=== PATIENT | female | born 1940 | race Hispanic/Latino ===

== ENCOUNTER 2017-06-27 12:50 | Inpatient (IN) | payer MEDICARE ==
[~2017-06-27] VITALS: Ht 154.9 cm; Wt 63.5 kg
[~2017-06-27 12:50] MED LIST: ASPI-555 PO; AZIT500T4 PO; BENZ200C53 PO; CHOL200074 PO; CYAN250014 PO; ESOM20CA39 PO; FLUT1DIS IH; FOLI0.8T22 PO; LEVO100T12 PO; LORA0.5T2 PO; LORA10CA9 PO; LOSA100T29 PO; MECL-129 PO; METO-391 PO; MONT10TA24 PO; PRED10TA23 PO; TIOT4MIS2 IH; TRAM50TA4 PO
[2017-06-27 14:08] LABS: BASOPHILS % (AUTO) 0.5 % (0.0-5.0); EOSINOPHILS % (AUTO) 2.9 % (0.0-8.0); HEMATOCRIT 33.8 % (36-48); LYMPHOCYTES % (AUTO) 6.8 % (21.0-51.0); MEAN CORPUSCULAR HEMOGLOBIN 26.4 pg (27.0-33.0); MEAN CORPUSCULAR HGB CONC 32.3 g/dL (32.0-36.0); MEAN CORPUSCULAR VOLUME 81.6 fL (79-99); MONOCYTES % (AUTO) 7.5 % (3.0-13.0); NEUTROPHILS % (AUTO) 82.3 % (40.0-77.0); PLATELET COUNT (AUTO) 515 K/uL (130-400); RED BLOOD CELL COUNT(AUTO) 4.15 MIL/uL (4.00-5.50); RED CELL DISTRIBUTION WIDTH 17.3 % (11.0-15.5); WHITE BLOOD COUNT (AUTO) 17.3 K/uL (4.8-10.8)
[2017-06-27 14:18] LABS: CREATININE 1.3 mg/dL (0.5-1.5); POTASSIUM 4.2 mmol/L (3.5-5.1)
[2017-06-27 14:22] LABS: ALBUMIN 2.4 g/dL (3.5-5.0); BILIRUBIN,TOTAL 0.6 mg/dL (0.2-1.0); TOTAL PROTEIN, SERUM 6.6 g/dL (6.0-8.3)
[2017-06-27 14:26] LABS: INR 1.09 (0.85-1.15); PARTIAL THROMBOPLASTIN TIME 26.6 SEC (26.3-35.5); PROTHROMBIN TIME 11.4 SEC (9.6-11.6)
[2017-06-27] MEDS ORDERED: ASPIRIN 325 MG TABLET ONE (16:11)
[2017-06-27 17:35] LABS: APPEARANCE,URINE Clear (CLEAR); BILIRUBIN,URINE Negative (NEGATIVE); COLOR,URINE Yellow (YELLOW); GLUCOSE, URINE (UA) Negative (NEGATIVE); KETONES,URINE Negative (NEGATIVE); LEUKOCYTE ESTERASE ,URINE Small (NEGATIVE); NITRATE,URINE Negative (NEGATIVE); OCCULT BLOOD,URINE Negative (NEGATIVE); PH,URINE 6.5 (5.0-8.0); PROTEIN,URINE Negative (NEGATIVE); UROBILINOGEN,URINE 0.2 mg/dL (0.2-1.0)
[2017-06-27 17:40] LABS: AMPHET/METH SCREEN,URINE NEGATIVE (NEGATIVE); BARBITURATE SCREEN, URINE NEGATIVE (NEGATIVE); BENZODIAZEPINES SCREEN,URINE NEGATIVE (NEGATIVE); CANNABINOID SCREEN,URINE NEGATIVE (NEGATIVE); COCAINE SCREEN,URINE NEGATIVE (NEGATIVE); OPIATE SCREEN,URINE NEGATIVE (NEGATIVE); PHENCYCLIDINE SCREEN,URINE NEGATIVE (NEGATIVE)
[2017-06-27 18:05] LABS: BACTERIA,URINE None Seen /HPF (None Seen); RBC,URINE None Seen /HPF (0-1); SQUAMOUS EPITHELIAL CELL,UR 0-2 /LPF (0-2); WBC,URINE 0-1 /HPF (0-1)
[2017-06-27] MEDS ORDERED: LACTULOSE 20 GM/30 ML UDCUP PO PRN (22:00)
[2017-06-27] MEDS ORDERED: ONDANSETRON HCL 4 MG/2 ML VIAL IV PRN (22:00)
[2017-06-27] MEDS ORDERED: HYDRALAZINE HCL 20 MG/ML VIAL IV PRN (22:00)
[2017-06-27] MEDS ORDERED: LORAZEPAM 1 MG TABLET ONE (23:10)
[2017-06-28] MEDS ORDERED: ENOXAPARIN SODIUM 30 MG/0.3 ML SQ ONE ×2 (00:26→09:00)
[2017-06-28 05:15] LABS: HEMATOCRIT 33.2 % (36-48); MEAN CORPUSCULAR HEMOGLOBIN 26.4 pg (27.0-33.0); MEAN CORPUSCULAR HGB CONC 32.2 g/dL (32.0-36.0); MEAN CORPUSCULAR VOLUME 82.1 fL (79-99); PLATELET COUNT (AUTO) 513 K/uL (130-400); RED BLOOD CELL COUNT(AUTO) 4.04 MIL/uL (4.00-5.50); RED CELL DISTRIBUTION WIDTH 17.9 % (11.0-15.5); WHITE BLOOD COUNT (AUTO) 16.3 K/uL (4.8-10.8)
[2017-06-28 05:31] LABS: CREATININE 1.5 mg/dL (0.5-1.5); MAGNESIUM 1.7 mg/dL (1.80-2.40); POTASSIUM 4.4 mmol/L (3.5-5.1)
[2017-06-28] MEDS ORDERED: SODIUM CHLORIDE 0.9% 500ML 500 ML IV ONE (09:00)
[2017-06-28] MEDS ORDERED: PANTOPRAZOLE SODIUM 40 MG TABLET.DR PO ONE (09:00)
[2017-06-28] MEDS ORDERED: ASPIRIN 325 MG TABLET ONE (09:00)
[2017-06-28] MEDS ORDERED: ACETAMINOPHEN 325 MG TAB ONE (09:03)
[2017-06-28] MEDS: PANTOPRAZOLE SODIUM 40 MG TABLET.DR PO SCH (12:41)
[2017-06-28] MEDS: ASPIRIN 325 MG TABLET PO SCH (12:41)
[2017-06-28] MEDS: ENOXAPARIN SODIUM 30 MG/0.3 ML SQ SCH (12:41)
[2017-06-28 13:41] VITALS: BP 142/73
[2017-06-28] MEDS: SODIUM CHLORIDE 0.9% 1000ML 1,000 ML IV SCH (14:01)
[2017-06-28] MEDS: ACETAMINOPHEN 325 MG TAB PO PRN (15:32)
[2017-06-28 16:35] VITALS: BP 144/71
[2017-06-28 19:03] VITALS: BP 145/74
[2017-06-28 23:06] VITALS: BP 139/65
[2017-06-29] VITALS (7 sets, daily range): BP systolic 112–165; BP diastolic 46–82
[2017-06-29] MEDS: SODIUM CHLORIDE 0.9% 1000ML 1,000 ML IV SCH (05:58)
[2017-06-29] MEDS: PANTOPRAZOLE SODIUM 40 MG TABLET.DR PO SCH (07:48)
[2017-06-29] MEDS: ASPIRIN 325 MG TABLET PO SCH (07:50)
[2017-06-29] MEDS: ENOXAPARIN SODIUM 30 MG/0.3 ML SQ SCH (07:52)
[2017-06-29] MEDS: ACETAMINOPHEN 325 MG TAB PO PRN ×2 (09:29→20:41)
[2017-06-29] MEDS ORDERED: TRAMADOL HCL 50 MG TABLET PO PRN (11:45)
[2017-06-29] MEDS ORDERED: METOPROLOL TARTRATE 25 MG TAB PO SCH (11:45)
[2017-06-29] MEDS: PREDNISONE 10 MG TABLET PO SCH (14:44)
[2017-06-29] MEDS: LEVOTHYROXINE 100 MCG TABLET PO SCH (14:44)
[2017-06-29] MEDS: CLOPIDOGREL BISULFATE 75 MG TAB PO SCH (14:44)
[2017-06-29] MEDS: LOSARTAN 100 MG TABLET PO SCH (14:44)
[2017-06-29] MEDS ORDERED: ATOR20TA65 PO (17:45)
[2017-06-29] MEDS ORDERED: SERT50TA12 PO (17:45)
[2017-06-29] MEDS ORDERED: ACET-2160 PO (17:45)
[2017-06-29] MEDS: MONTELUKAST SODIUM 10 MG TAB PO SCH (20:01)
[2017-06-29] MEDS: ATORVASTATIN CALCIUM 20 MG TABLET PO SCH (20:01)
[2017-06-29] MEDS: LORAZEPAM 0.5 MG TABLET PO SCH (20:01)
[2017-06-30 03:16] VITALS: BP 116/74
[2017-06-30] MEDS: LEVOTHYROXINE 100 MCG TABLET PO SCH ×2 (06:19→13:21)
[2017-06-30 07:26] VITALS: BP 144/79
[2017-06-30] MEDS: LOSARTAN 100 MG TABLET PO SCH ×2 (07:38→13:21)
[2017-06-30] MEDS: ASPIRIN 81 MG EC TAB PO SCH (07:38)
[2017-06-30] MEDS: PANTOPRAZOLE SODIUM 40 MG TABLET.DR PO SCH (07:38)
[2017-06-30] MEDS: CLOPIDOGREL BISULFATE 75 MG TAB PO SCH ×2 (07:38→13:21)
[2017-06-30] MEDS: SERTRALINE HCL 50 MG TABLET PO SCH (07:38)
[2017-06-30] MEDS: PREDNISONE 10 MG TABLET PO SCH ×2 (07:39→13:21)
[2017-06-30] MEDS: ENOXAPARIN SODIUM 30 MG/0.3 ML SQ SCH (07:39)
[2017-06-30 11:28] VITALS: BP 150/75
[2017-06-30] MEDS: METOPROLOL SUCC 50 MG PO SCH (13:32)
[2017-06-30] MEDS: TRAMADOL HCL 50 MG TABLET PO PRN ×2 (13:40→19:55)
[2017-06-30 15:46] VITALS: BP 138/78
[2017-06-30] MEDS: ACETAMINOPHEN 325 MG TAB PO PRN (16:21)
[2017-06-30 19:19] VITALS: BP 157/76
[2017-06-30] MEDS: ATORVASTATIN CALCIUM 20 MG TABLET PO SCH (19:54)
[2017-06-30] MEDS: MONTELUKAST SODIUM 10 MG TAB PO SCH (19:55)
[2017-06-30] MEDS: LORAZEPAM 0.5 MG TABLET PO SCH (22:14)
[2017-06-30 23:16] VITALS: BP 183/85
[2017-07-01 03:24] VITALS: BP 139/71
[2017-07-01] MEDS: LEVOTHYROXINE 100 MCG TABLET PO SCH ×2 (06:39→14:15)
[2017-07-01] MEDS: PANTOPRAZOLE SODIUM 40 MG TABLET.DR PO SCH (06:39)
[2017-07-01 08:12] VITALS: BP 154/78
[2017-07-01] MEDS: SERTRALINE HCL 50 MG TABLET PO SCH (08:56)
[2017-07-01] MEDS: ASPIRIN 81 MG EC TAB PO SCH (08:56)
[2017-07-01] MEDS: LOSARTAN 100 MG TABLET PO SCH ×2 (08:56→14:15)
[2017-07-01] MEDS: PREDNISONE 10 MG TABLET PO SCH ×2 (08:56→14:15)
[2017-07-01] MEDS: TRAMADOL HCL 50 MG TABLET PO PRN ×2 (08:57→17:12)
[2017-07-01] MEDS: CLOPIDOGREL BISULFATE 75 MG TAB PO SCH ×2 (08:57→14:15)
[2017-07-01] MEDS: ENOXAPARIN SODIUM 30 MG/0.3 ML SQ SCH (08:58)
[2017-07-01] MEDS: METOPROLOL SUCC 50 MG PO SCH (08:58)
[2017-07-01 11:31] VITALS: BP 148/81
[2017-07-01] MEDS: ACETAMINOPHEN 325 MG TAB PO PRN (12:38)
[2017-07-01 16:00] VITALS: BP 162/86
== END 2017-07-01 19:30 | DRG 65 ==
LOC: EDH 12:50 → EDHIP 17:35 → OBSVTOIN 17:35 → 2DH 06-28 12:50
PROVIDERS: ADMIT Family Medicine; ATTEND Family Medicine
DX: I63.9 Cerebral infarction, unspecified (principal); E44.0 Moderate protein-calorie malnutrition; J84.10 Pulmonary fibrosis, unspecified; M06.9 Rheumatoid arthritis, unspecified; M43.10 Spondylolisthesis, site unspecified; D72.829 Elevated white blood cell count, unspecified; I10 Essential (primary) hypertension; E03.9 Hypothyroidism, unspecified; Z90.49 Acquired absence of other specified parts of digestive tract; Z88.8 Allergy status to other drugs, medicaments and biological substances
CPT/HCPCS: 36415; 70450; 70551; 71045; 72146; 72148; 80048; 80053; 80061; 80305; 81001; 82550; 83036; 83735; 84484; 85025; 85027; 85610; 85730; 92610; 93005; 93306; 93880; 97039; J0360; J1650; J2405; J7030; J7040; J7512